=== PATIENT | male | born 1950 | race Caucasian/White ===

== ENCOUNTER → 2017-08-03 | Outpatient (CLI) | payer MEDICARE, OTHER ==
[2017-08-03 10:32] LABS: INTERNATIONAL NORM RATIO 2.1 (2.0-3.5)
== END | disposition home or self-care (01) ==
LOC: LAB 09:33
PROVIDERS: Internal Medicine Cardiovascular Disease
DX: I35.0 Nonrheumatic aortic (valve) stenosis (principal); Z95.2 Presence of prosthetic heart valve

== ENCOUNTER → 2017-08-08 | Outpatient (CLI) | payer MEDICARE, OTHER | END | disposition home or self-care (01) | LOC: LAB 09:14 | PROVIDERS: Internal Medicine Cardiovascular Disease | DX: Z95.2 Presence of prosthetic heart valve (principal) ==

== ENCOUNTER → 2017-08-17 | Outpatient (CLI) | payer MEDICARE, OTHER ==
[2017-08-17 10:32] LABS: INTERNATIONAL NORM RATIO 3.7 (2.0-3.5)
== END | disposition home or self-care (01) ==
LOC: LAB 09:00
PROVIDERS: Internal Medicine Cardiovascular Disease
DX: Z95.2 Presence of prosthetic heart valve (principal)

== ENCOUNTER → 2017-08-24 | Outpatient (CLI) | payer MEDICARE, OTHER ==
[~2017-08-24] MED LIST: ASPIR 8181 MG PO; Coumadin5 MG PO; LIPITOR40 MG PO
[2017-08-24 11:44] LABS: INTERNATIONAL NORM RATIO 4.3 (2.0-3.5)
== END | disposition home or self-care (01) ==
LOC: LAB 10:40
PROVIDERS: Internal Medicine Cardiovascular Disease
DX: Z48.813 Encounter for surgical aftercare following surgery on the respiratory system (principal); Z95.2 Presence of prosthetic heart valve

== ENCOUNTER 2017-08-28 01:01 | Inpatient (IN) | payer MEDICARE, OTHER ==
[2017-08-28] VITALS (31 sets, daily range): BP systolic 84–120; BP diastolic 23–66
[~2017-08-28] VITALS: Ht 170.2 cm; Wt 74.6 kg
--- NOTE | ~2017-08-28 | EKG ---
[place], [place] ELECTROCARDIOGRAM REPORT NAME: JAY SAM SR UNIT #: [id number] ROOM: [facility] DOCTOR: TUNG ALBERT,MERNA BIRTHDATE: [birth year] DOS: 08/28/2017 TIME: 0105 hours. FINDINGS: 1. Sinus tachycardia at 104 beats per minute. 2. T-wave inversion in V3 to V6 is present and may represent ischemia. 3. An abnormal ECG. 4. No previous tracing is a bit available for comparison. MERNA RUBY MD CM:EKGRPT:ELECTROCARDIOGRAM REPORT 1150 1236 MERNA RUBY MD
--- NOTE | ~2017-08-28 | EKG ---
[place], [place] ELECTROCARDIOGRAM REPORT NAME: JAY SAM SR UNIT #: [id number] ROOM: [facility] DOCTOR: TUNG ALBERT,MERNA BIRTHDATE: [birth year] DOS: 08/28/2017 TIME: 0351 hours. FINDINGS: 1. Normal sinus rhythm at 83 beats per minute. 2. Mild T-wave inversion in V3 to V6 is present and could represent ischemia. 3. No significant change from the ECG done at 0105 hours of the same day. MERNA RUBY MD CM:EKGRPT:ELECTROCARDIOGRAM REPORT 1150 1238 MERNA RUBY MD
--- NOTE | ~2017-08-28 | CON ---
[place], [place] REPORT OF CONSULTATION NAME: JAY SAM SR [facility] #: [id number] UNIT #: [id number] ROOM: [facility] DOCTOR: MERNA RUBY MD BIRTHDATE: [birth year] DOS: 08/29/2017 HISTORY OF PRESENT ILLNESS: The patient is a 67-year-old -[place] gentleman whom I saw last summer for preop evaluation for a urologic procedure and during the examination, he seemed to have critical aortic stenosis, which was confirmed by an echocardiogram, which resulted in the implantation of a bioprosthetic aortic valve. He had significant disease in a modest-sized right coronary artery, which was bypassed with a vein graft. He has had appendectomy, a urostomy and had bladder cancer. He smoke, quit smoking about 2 years ago. He has never had diabetes mellitus, stroke or any kidney problems. He was admitted to the hospital because of severe nosebleed and this was attended to in the Emergency Department. His INR was 4.3. He did not have any headaches, any runny nose or cold prior to the start of bleeding. He has chronic cough with some expectoration, but no hemoptysis. He did not have any chest pain and no fever or chills or nocturnal sweating. HOME MEDICATIONS: Include aspirin 81 daily, atorvastatin 40 daily and warfarin 7 mg daily. PHYSICAL EXAMINATION: GENERAL: Patient is very pleasant, alert and oriented. He has a prosthetic right eye. No anemia, thyromegaly or finger clubbing. VITAL SIGNS: Pulse regular at 84 beats per minute, blood pressure 90/58. NECK: Normal JVP. No bruit in the neck. HEART: There is no cardiomegaly. Auscultation reveals somewhat loud aortic component of the second heart sound with a faint grade 1 early peaking systolic murmur over the aortic area and good pedal pulses and no edema in the lower extremities. RESPIRATORY: He has rhonchi bilaterally with mildly reduced breath sounds. Monitor shows normal sinus rhythm. IMPRESSION: 1. This patient had significant epistaxis with modestly elevated INR. Aortic valve was replaced 6 months ago. I think his warfarin can be discontinued safely. 2. Coronary artery disease. I would continue using aspirin and atorvastatin, obviously beta blockers should be added, metoprolol tartrate of 25 mg b.i.d. is being started. I thank you for this consult. [place], [place] REPORT OF CONSULTATION NAME: CECY SEAMANJAY You UNIT #: [id number] ROOM: [facility] DOCTOR: MERNA RUBY MD BIRTHDATE: [birth year] MERNA RUBY MD CM:CONSTR:REPORT OF CONSULTATION 1232 08/30/17 0052 interface
--- NOTE | ~2017-08-28 | EKG ---
[place], [place] ELECTROCARDIOGRAM REPORT NAME: JAY SAM SR UNIT #: [id number] ROOM: [facility] DOCTOR: TUNG ALBERT,MERNA BIRTHDATE: [birth year] DOS: 08/28/2017 TIME: 0735 hours. FINDINGS: 1. Normal sinus rhythm at 75 beats per minute. 2. Mild T-wave inversion in V3 to V6 and inferior leads is present, could represent ischemia. 3. No significant change from an ECG done at 0351 of the same day. MERNA RUBY MD CM:EKGRPT:ELECTROCARDIOGRAM REPORT 1150 1240 MERNA RUBY MD
[2017-08-28] MEDS ORDERED: Coumadin5 MG PO (01:26)
[2017-08-28] MEDS ORDERED: ASPIR 8181 MG PO (01:27)
[2017-08-28] MEDS ORDERED: LIPITOR40 MG PO (01:28)
[2017-08-28 01:39] LABS: BASO # 0.1 10*3/uL (0.0-0.1); BASO % 0.4 % (0.0-1.0); EOS % 0.2 % (1.0-4.0); HEMATOCRIT 20.1 % (42.0-52.0); HEMOGLOBIN 6.6 g/dl (14.0-18.0); LYMPH # 1.3 10*3/uL (1.3-4.4); LYMPH % 10.1 % (27.0-41.0); MEAN CELL VOLUME 87.8 fl (80.0-94.0); MEAN CORPUSCULAR HGB 28.8 pg (27.0-31.0); MEAN CORPUSCULAR HGB CONC 32.8 g/dl (33.0-37.0); MEAN PLATELET VOLUME 9.2 fl (9.6-12.3); MONO # 0.8 10*3/uL (0.1-1.0); MONO % 6.5 % (3.0-9.0); NEUT # 10.2 10*3/uL (2.3-7.9); NEUT % 81.8 % (47.0-73.0); PLATELET COUNT AUTOMATED 316 10*3/uL (130-400); RED BLOOD COUNT 2.29 10*6/uL (4.50-5.90); RED CELL DISTRI WIDTH 14.9 % (0-14.5); WHITE BLOOD COUNT 12.5 10*3/uL (4.8-10.8)
[2017-08-28 01:51] LABS: ACT PARTIAL THROMBO TIME 61.9 SECONDS (20.8-31.5); INTERNATIONAL NORM RATIO 4.3 (2.0-3.5)
[2017-08-28 01:56] LABS: ALBUMIN 2.2 gm/dl (3.1-4.5); ALKALINE PHOSPHATASE 93 U/L (45-117); BUN 29 mg/dl (7-24); CHLORIDE 103 mmol/L (98-107); CREATININE 1.54 mg/dL (0.70-1.30); POTASSIUM 3.7 mmol/L (3.5-5.1); SGOT/AST 39 IU/L (3-35); SGPT/ALT 16 U/L (12-78); SODIUM 137 mmol/L (136-145); TOTAL PROTEIN 7.3 gm/dL (6.4-8.2)
[2017-08-28 01:57] LABS: TROPONIN I < 0.015 ng/ml (<0.045)
[2017-08-28 10:23] LABS: BASO % 0.3 % (0.0-1.0); EOS # 0.1 10*3/uL (0.0-0.4); EOS % 0.6 % (1.0-4.0); HEMATOCRIT 25.7 % (42.0-52.0); HEMOGLOBIN 8.6 g/dl (14.0-18.0); LYMPH # 2.3 10*3/uL (1.3-4.4); LYMPH % 19.6 % (27.0-41.0); MEAN CORPUSCULAR HGB 28.8 pg (27.0-31.0); MEAN CORPUSCULAR HGB CONC 33.5 g/dl (33.0-37.0); MEAN PLATELET VOLUME 9.7 fl (9.6-12.3); MONO # 0.9 10*3/uL (0.1-1.0); MONO % 7.5 % (3.0-9.0); NEUT # 8.4 10*3/uL (2.3-7.9); NEUT % 71.2 % (47.0-73.0); PLATELET COUNT AUTOMATED 299 10*3/uL (130-400); RED BLOOD COUNT 2.99 10*6/uL (4.50-5.90); RED CELL DISTRI WIDTH 14.7 % (0-14.5); WHITE BLOOD COUNT 11.8 10*3/uL (4.8-10.8)
[2017-08-28 10:52] LABS: ACT PARTIAL THROMBO TIME 60.7 SECONDS (20.8-31.5)
[2017-08-28 10:54] LABS: ALBUMIN 2.3 gm/dl (3.1-4.5); ALKALINE PHOSPHATASE 96 U/L (45-117); BUN 25 mg/dl (7-24); CHLORIDE 102 mmol/L (98-107); CHOLESTEROL 101 mg/dL (<200); CREATININE 1.17 mg/dL (0.70-1.30); HDL CHOLESTEROL 31 mg/dl (40-60); LDL CHOLESTEROL 48 mg/dL (9-159); PHOSPHOROUS 3.8 mg/dL (2.5-4.9); POTASSIUM 3.4 mmol/L (3.5-5.1); SGOT/AST 35 IU/L (3-35); SGPT/ALT 19 U/L (12-78); SODIUM 138 mmol/L (136-145); TOTAL PROTEIN 7.8 gm/dL (6.4-8.2); TRIGLYCERIDES 108 mg/dl (<150); VLDL CHOLESTEROL 22 mg/dL (6-40)
[2017-08-28 10:59] LABS: THYROID STIM HORMONE (HS) 0.688 uIU/ml (0.358-4.75)
[2017-08-28 11:53] LABS: VITAMIN D, 25-HYDROXY 22.2 ng/mL (30-100)
[2017-08-28 22:19] LABS: BASO # 0.1 10*3/uL (0.0-0.1); BASO % 0.6 % (0.0-1.0); EOS # 0.1 10*3/uL (0.0-0.4); EOS % 0.9 % (1.0-4.0); HEMATOCRIT 27.6 % (42.0-52.0); HEMOGLOBIN 9.4 g/dl (14.0-18.0); LYMPH # 1.6 10*3/uL (1.3-4.4); MEAN CELL VOLUME 84.7 fl (80.0-94.0); MEAN CORPUSCULAR HGB 28.8 pg (27.0-31.0); MEAN CORPUSCULAR HGB CONC 34.1 g/dl (33.0-37.0); MEAN PLATELET VOLUME 9.5 fl (9.6-12.3); MONO # 0.9 10*3/uL (0.1-1.0); MONO % 8.7 % (3.0-9.0); NEUT # 7.2 10*3/uL (2.3-7.9); NEUT % 72.8 % (47.0-73.0); PLATELET COUNT AUTOMATED 278 10*3/uL (130-400); RED BLOOD COUNT 3.26 10*6/uL (4.50-5.90); RED CELL DISTRI WIDTH 14.7 % (0-14.5); WHITE BLOOD COUNT 9.9 10*3/uL (4.8-10.8)
[2017-08-29] VITALS: BP 90/57
[2017-08-29 04:00] VITALS: BP 97/63
[2017-08-29 05:39] LABS: BUN 25 mg/dl (7-24); CHLORIDE 103 mmol/L (98-107); CREATININE 1.19 mg/dL (0.70-1.30); POTASSIUM 3.8 mmol/L (3.5-5.1); SODIUM 137 mmol/L (136-145)
[2017-08-29 05:44] LABS: INTERNATIONAL NORM RATIO 1.7 (2.0-3.5)
[2017-08-29 05:53] LABS: BASO # 0.1 10*3/uL (0.0-0.1); BASO % 0.5 % (0.0-1.0); EOS # 0.1 10*3/uL (0.0-0.4); EOS % 1.4 % (1.0-4.0); HEMATOCRIT 25.9 % (42.0-52.0); LYMPH # 1.7 10*3/uL (1.3-4.4); LYMPH % 17.6 % (27.0-41.0); MEAN CELL VOLUME 84.9 fl (80.0-94.0); MEAN CORPUSCULAR HGB 29.5 pg (27.0-31.0); MEAN CORPUSCULAR HGB CONC 34.7 g/dl (33.0-37.0); MONO # 0.9 10*3/uL (0.1-1.0); MONO % 9.3 % (3.0-9.0); NEUT # 6.9 10*3/uL (2.3-7.9); NEUT % 70.1 % (47.0-73.0); NUCLEATED RED BLOOD CELL 0.2 % (0.0-0.0); PLATELET COUNT AUTOMATED 277 10*3/uL (130-400); RED BLOOD COUNT 3.05 10*6/uL (4.50-5.90); RED CELL DISTRI WIDTH 14.8 % (0-14.5); WHITE BLOOD COUNT 9.8 10*3/uL (4.8-10.8)
[2017-08-29 08:00] VITALS: BP 90/58
[2017-08-29 12:00] VITALS: BP 96/58
[2017-08-29] MEDS ORDERED: VITAMIN D-32000 UNI1 PO (14:05)
[2017-08-29] MEDS ORDERED: LOPRESSOR25 MG PO (14:05)
== END 2017-08-29 15:40 | disposition home or self-care (01) | DRG 811 ==
LOC: ED 01:01 → ICCU 03:14 → EDHOLD 03:14 → ICCU 03:28
PROVIDERS: Emergency Medicine Emergency Medical Services; Family Medicine; Internal Medicine; Internal Medicine Cardiovascular Disease
PROC: 30233N1 Transfusion of Nonautologous Red Blood Cells into Peripheral Vein, Percutaneous Approach (ICD-10-PCS; principal; 2017-08-28)
DX: D62 Acute posthemorrhagic anemia (principal); E43 Unspecified severe protein-calorie malnutrition; I95.9 Hypotension, unspecified; D68.9 Coagulation defect, unspecified; R65.10 Systemic inflammatory response syndrome (SIRS) of non-infectious origin without acute organ dysfunction; Z93.6 Other artificial openings of urinary tract status; R04.0 Epistaxis; T45.515A Adverse effect of anticoagulants, initial encounter; E87.6 Hypokalemia; I25.10 Atherosclerotic heart disease of native coronary artery without angina pectoris; D72.829 Elevated white blood cell count, unspecified; R79.89 Other specified abnormal findings of blood chemistry; E55.9 Vitamin D deficiency, unspecified; Z79.01 Long term (current) use of anticoagulants; Z95.2 Presence of prosthetic heart valve; Z95.1 Presence of aortocoronary bypass graft; Z85.51 Personal history of malignant neoplasm of bladder; I25.2 Old myocardial infarction; Z90.49 Acquired absence of other specified parts of digestive tract; Z81.8 Family history of other mental and behavioral disorders; Z79.82 Long term (current) use of aspirin; Z79.899 Other long term (current) drug therapy; Y92.89 Other specified places as the place of occurrence of the external cause; Z87.891 Personal history of nicotine dependence; Z68.25 Body mass index [BMI] 25.0-25.9, adult

== ENCOUNTER 2017-09-18 09:48 | Emergency (ER) | payer MEDICARE, OTHER ==
[~2017-09-18] VITALS: Ht 177.8 cm; Wt 74.4 kg
[~2017-09-18 09:48] MED LIST changes: +LOPRESSOR25 MG PO; +VITAMIN D-32000 UNI1 PO
[2017-09-18] MEDS ORDERED: PROTONIX TR40 M1 PO (09:56)
[2017-09-18 10:23] LABS: BASO # 0.1 10*3/uL (0.0-0.1); BASO % 0.6 % (0.0-1.0); EOS # 0.1 10*3/uL (0.0-0.4); EOS % 0.8 % (1.0-4.0); HEMATOCRIT 28.6 % (42.0-52.0); HEMOGLOBIN 9.2 g/dl (14.0-18.0); LYMPH # 1.4 10*3/uL (1.3-4.4); MEAN CELL VOLUME 86.7 fl (80.0-94.0); MEAN CORPUSCULAR HGB 27.9 pg (27.0-31.0); MEAN CORPUSCULAR HGB CONC 32.2 g/dl (33.0-37.0); MEAN PLATELET VOLUME 9.5 fl (9.6-12.3); MONO # 0.7 10*3/uL (0.1-1.0); MONO % 6.3 % (3.0-9.0); NEUT # 9.2 10*3/uL (2.3-7.9); NEUT % 78.4 % (47.0-73.0); PLATELET COUNT AUTOMATED 358 10*3/uL (130-400); RED CELL DISTRI WIDTH 15.4 % (0-14.5); WHITE BLOOD COUNT 11.8 10*3/uL (4.8-10.8)
[2017-09-18 10:33] LABS: ACT PARTIAL THROMBO TIME 30.4 SECONDS (20.8-31.5); INTERNATIONAL NORM RATIO 1.1 (2.0-3.5)
[2017-09-18 10:41] LABS: ALBUMIN 2.1 gm/dl (3.1-4.5); CREATININE 1.6 mg/dL (0.70-1.30); PHOSPHOROUS 4.4 mg/dL (2.5-4.9); POTASSIUM 3.8 mmol/L (3.5-5.1); TOTAL PROTEIN 8.4 gm/dL (6.4-8.2)
[2017-09-18 10:43] LABS: LIPASE 129 U/L (73-393)
[2017-09-18 10:45] LABS: TROPONIN I < 0.015 ng/ml (<0.045)
[2017-09-18 11:08] LABS: BILIRUBIN NEGATIVE (NEGATIVE); CLARITY CLOUDY (CLEAR); COLOR YELLOW (YELLOW); GLUCOSE NEGATIVE (NEGATIVE); KETONE NEGATIVE (NEGATIVE); SPECIFIC GRAVITY 1.015 (1.005-1.030)
[2017-09-18 11:09] LABS: BLOOD 3+ (NEGATIVE); LEUKO ESTERASE 3+ (NEGATIVE); NITRITE POSITIVE (NEGATIVE); UROBILINOGEN 0.2 E.U./dl (0.2-1.0); WBC TNTC wbc/hpf (0-5)
== END 2017-09-18 15:16 | disposition home or self-care (01) ==
LOC: ED 09:48
PROVIDERS: Emergency Medicine; Internal Medicine
DX: K59.00 Constipation, unspecified (principal); R10.84 Generalized abdominal pain; F17.200 Nicotine dependence, unspecified, uncomplicated; I25.10 Atherosclerotic heart disease of native coronary artery without angina pectoris; I25.2 Old myocardial infarction; Z85.51 Personal history of malignant neoplasm of bladder; Z90.49 Acquired absence of other specified parts of digestive tract; Z95.1 Presence of aortocoronary bypass graft; Z98.890 Other specified postprocedural states; Z79.82 Long term (current) use of aspirin; Z79.899 Other long term (current) drug therapy; Z90.6 Acquired absence of other parts of urinary tract